=== PATIENT | male | born 1960 | race Caucasian/White ===

== ENCOUNTER → 2020-06-01 01:56 | Outpatient (CLI) | payer BC, SELFPAY ==
[2020-06-02 08:28] LABS: SARS-CoV-2 RNA PCR Negative
== END ==
PROVIDERS: PCP Internal Medicine; Visit Provider Internal Medicine Gastroenterology
DX: Z01.812 Encounter for preprocedural laboratory examination (principal); Z20.822 Contact with and (suspected) exposure to COVID-19
CPT/HCPCS: C9803; U0003; U0005

== ENCOUNTER 2020-06-04 00:48 | Day surgery (SDC) | payer BC, SELFPAY ==
[2020-05-21 14:23] VITALS: BMI 26.5
[2020-06-04 06:44] VITALS: BP 132/68; PULSE 92; RESP 18; TEMP 36.6; O2SAT 98
[2020-06-04] MEDS: LACTATED RINGERS 1,000 ML 150 ML IV CONT (06:51)
--- NOTE | 2020-06-04 07:29 | WPDANESEPPF ---
Anes - Initial Pre Proc Eval Procedure: Operation Date: 06/04/20 08:00 Proposed Procedures p Colonoscopy - Sharan Charlton MD Date/Time: 06/04/20 07:29 Surgeon: Sharan Charlton MD Pre Op Diagnosis: Anemia, Family Hx of Colon Cancer Patient Data Age: 60 Gender: M Height: 5 ft 10 in Weight: 81.5 kg Last Vital Signs Temp 97.9 F 06/04/20 06:44 Pulse 92 06/04/20 06:44 Resp 18 06/04/20 06:44 Pulse Ox 98 06/04/20 06:44 Allergies Allergy/AdvReac Type Severity Reaction Status Date / Time No Known Allergies Allergy Verified 05/21/20 14:21 Home Medications Medication Instructions Recorded Confirmed Type amlodipine 5 mg tablet 5 mg PO DAILY #90 tablet 11/07/19 05/21/20 Rx atorvastatin 10 mg tablet 10 mg PO DAILY #90 tablet 11/07/19 05/21/20 Rx levothyroxine 125 mcg tablet 125 mcg PO DAILY #90 tablet 11/07/19 05/21/20 Rx losartan 100 mg tablet 100 mg PO DAILY 90 Days #90 tablet 11/07/19 05/21/20 Rx sodium,potassium,mag sulfates 17.5 See Rx Instructions PO .COMPLEX 04/11/20 05/21/20 Rx gram-3.13 gram-1.6 gram oral soln #354 ml Patient hx anesthesia problems: none Family hx anesthesia problems: none PMFSH Past Medical History Medical History (Updated 04/11/20 @ 14:12 by Sharan Charlton MD) Encounter for monitoring testosterone replacement therapy Family history of colon cancer Hematochezia HLD (hyperlipidemia) HTN (hypertension) Hypogonadism in male Hypothyroidism Family History Family History Mother Carcinoma of colon Father Acute myocardial infarction Sibling Family history of malignant neoplasm of breast in first degree relative Social History Social History Smoking status: Never smoker Alcohol intake: current Drinks per week: 20 Living arrangements: with family Gender identity (if verbalized by the patient): Male Spiritual care concerns: No Anes - Eval Final PreProcedure Day of Procedure 06/04/20 07:29 Patient weight: overweight Heart: regular rate and rhythm Lungs: clear to auscultation Airway: Mallampati scale class II Neurological: alert and oriented Last oral intake: >/= 8 hours ASA classification: III Emergent: no Anesthetic plan: proceed Anesthesia type and monitoring: general GIVS and standard monitoring Informed Consent: The patient's anesthetic plan and its attendant risks and benefits were discussed with the patient/family/POA. Questions were solicited and answers provided to the satisfaction of the patient/family/POA.
--- NOTE | 2020-06-04 08:09 | PM.HPGS ---
History of Present Illness History of Present Illness Consent: Risks, benefits, and alternatives have been discussed and questions answered. Patient agrees to proceed with procedure. Chief complaint: Anemia, Family Hx of Colon Cancer Narrative: Salty Alvarez is a 60 year old male with last colonoscopy 2018, h/o colon cancer in mother and sister Review of Systems Constitutional: Constitutional: Denies headache(s) and Denies weakness Eyes: Eyes: Denies blurry vision ENT: Reports Normal hearing present, Denies headache(s) and Denies neck pain Cardiovascular: Cardiovascular: Denies chest pain and Denies dyspnea Respiratory: Respiratory: Denies dyspnea Gastrointestinal: Gastrointestinal: Reports no additional gastrointestinal complaints Genitourinary: Genitourinary: Denies dysuria Musculoskeletal: Musculoskeletal: Denies neck pain Integumentary/Breasts: Skin/Breast: Denies dry skin Neurologic: Reports Normal hearing present, Denies headache(s) and Denies weakness Psychiatric: Psychiatric: Denies anxiety Endocrine: Endocrine: Denies change in body appearance Hematologic/Lymphatic: Hematologic/Lymphatic: Denies easy bleeding Allergic/Immunologic: Allergic/Immunologic: Denies urticaria PMF Past Medical History Medical History (Updated 04/11/20 @ 14:12 by Sharan Charlton MD) Encounter for monitoring testosterone replacement therapy Family history of colon cancer Hematochezia HLD (hyperlipidemia) HTN (hypertension) Hypogonadism in male Hypothyroidism Family History Family History Mother Carcinoma of colon Father Acute myocardial infarction Sibling Family history of malignant neoplasm of breast in first degree relative Social History Social History Smoking status: Never smoker Alcohol intake: current Drinks per week: 20 Living arrangements: with family Gender identity (if verbalized by the patient): Male Spiritual care concerns: No Meds Home Medications and Allergies Home Medications Medication Instructions Recorded Confirmed Type amlodipine 5 mg tablet 5 mg PO DAILY #90 tablet 11/07/19 05/21/20 Rx atorvastatin 10 mg tablet 10 mg PO DAILY #90 tablet 11/07/19 05/21/20 Rx levothyroxine 125 mcg tablet 125 mcg PO DAILY #90 tablet 11/07/19 05/21/20 Rx losartan 100 mg tablet 100 mg PO DAILY 90 Days #90 tablet 11/07/19 05/21/20 Rx sodium,potassium,mag sulfates 17.5 See Rx Instructions PO .COMPLEX 04/11/20 05/21/20 Rx gram-3.13 gram-1.6 gram oral soln #354 ml Allergies Allergy/AdvReac Type Severity Reaction Status Date / Time No Known Allergies Allergy Verified 05/21/20 14:21 Vital Signs Vital Signs - 24 hr 06/04/20 06:44 Temperature 97.9 F Pulse Rate 92 Respiratory Rate 18 Pulse Oximetry 98 Exam Const: General: comfortable and no acute distress HENMT: General nose exam: Normal nares present Eyes: General: appearance normal, both eyes and all related structures Neck: Neck: no JVD Resp: Auscultation: clear to auscultation bilaterally Cardio: Rate: regular rate Rhythm: regular rhythm GI: Inspection: non-distended GI Palp: Yes Soft to palpation Skin: General skin exam: normal color Neuro: General: gait normal Speech: normal speech Extrem: General: normal to inspection Psych: Mental Status: mental status grossly normal Assessment and Plan Assessment and plan (1) Family history of colon cancer: Code(s): Z80.0 - Family history of malignant neoplasm of digestive organs Status: Acute Assessment and Plan: proceed with colonoscopy
[2020-06-04 08:24] VITALS: BP 113/70; PULSE 75; RESP 17; O2SAT 96
[2020-06-04 08:34] VITALS: BP 127/81; PULSE 71; RESP 13; O2SAT 98
[2020-06-04 08:44] VITALS: BP 129/81; PULSE 69; RESP 14; O2SAT 100
== END 2020-06-04 08:59 | disposition home or self-care (01) ==
PROVIDERS: PCP Internal Medicine; Visit Provider Internal Medicine Gastroenterology
PROC: 0DJD8ZZ Inspection of Lower Intestinal Tract, Via Natural or Artificial Opening Endoscopic (ICD-10-PCS; CPT 45378; principal; 2020-06-04 08:00)
DX: Z12.11 Encounter for screening for malignant neoplasm of colon (principal); K63.5 Polyp of colon; D12.3 Benign neoplasm of transverse colon; Z80.0 Family history of malignant neoplasm of digestive organs; K57.30 Diverticulosis of large intestine without perforation or abscess without bleeding; K64.8 Other hemorrhoids; K92.1 Melena; E78.5 Hyperlipidemia, unspecified; I10 Essential (primary) hypertension; E03.9 Hypothyroidism, unspecified; E29.1 Testicular hypofunction
CPT/HCPCS: 45385; 88305; J2704; J7120

== ENCOUNTER 2024-03-04 10:47 | Outpatient (CLI) | payer MEDICARE, SELFPAY ==
--- NOTE | ~2024-03-04 | XR_ITS ---
Clinical Indication: Cough PA and lateral views of the chest: Comparison: None Findings: The lungs are clear, without evidence of focal consolidation or pleural effusion. Cardiome diastinal silhouette is within normal limits. Bones and soft tissues are unremarkable. Impression: Normal chest. Reviewed, dictated and finalized at location . T CONSULTANT Impression: Normal chest.
== END 2024-03-04 10:48 | disposition home or self-care (01) ==
LOC: GOSHIMG 10:48
PROVIDERS: PCP Internal Medicine; Visit Provider Internal Medicine
DX: R05.9 Cough, unspecified (principal)
CPT/HCPCS: 71046